=== PATIENT | male | born 1985 | race Caucasian/White ===

== ENCOUNTER 2017-07-18 03:27 | Emergency (ER) | payer OTHER ==
[2017-07-18 03:31] VITALS: BP 146/84; PULSE 92; RESP 18; TEMP 98.3
--- NOTE | 2017-07-18 03:46 | ED ---
General Adult HPI - General Chief complaint: Skin/Abscess/Foreign Body Stated complaint: Arm Abscess Source: patient, RN notes reviewed Mode of arrival: ambulatory Limitations: no limitations - History of Present Illness Initial comments: 32-year-old male with no significant past medical history presents for evaluation of rash on his right shoulder. Rash is been present for approximately one week. His itching. Patient does not report any specific exposure. He works at a [employer], and states there may be poison mikayla but is unsure if he was ever exposed. Denies fever or chills. Denies any spreading of the rash. Rash is itchy in nature. No fever or chills. Denies any medications. - Related Data Previous Rx's Medication Instructions Recorded Mupirocin 2% Oint [Bactroban 2% 1 applic TOPICAL TID #30 gm 07/18/17 Oint] Allergies Allergy/AdvReac Type Severity Reaction Status Date / Time No Known Allergies Allergy Verified 07/18/17 03:31 Review of Systems ROS Statement: Those systems with pertinent positive or pertinent negative responses have been documented in the HPI. ROS Other: All systems not noted in ROS Statement are negative. Past Medical History Past Medical History: No Reported History History of Any Multi-Drug Resistant Organisms: None Reported Past Surgical History: No Surgical Hx Reported Past Psychological History: No Psychological Hx Reported Smoking Status: Current every day smoker Past Alcohol Use History: Daily Past Drug Use History: None Reported General Exam Limitations: no limitations General appearance: alert, in no apparent distress Head exam: Present: atraumatic, normocephalic Eye exam: Present: normal appearance, PERRL ENT exam: Present: normal exam Neck exam: Absent: tenderness, meningismus Respiratory exam: Present: normal lung sounds bilaterally. Absent: respiratory distress Cardiovascular Exam: Present: regular rate, normal rhythm GI/Abdominal exam: Present: soft. Absent: distended, tenderness Extremities exam: Present: other (Erythematous rash with some yellow crusting. No signs of abscess,) Back exam: Present: normal inspection Neurological exam: Present: alert, oriented X3 Psychiatric exam: Present: normal affect, normal mood Skin exam: Present: warm, dry, rash (Rash to right anterior shoulder, erythematous with crusting) Course Vital Signs 07/18/17 03:30 Temperature 98.3 F Pulse Rate 92 Respiratory 18 Rate Blood Pressure 146/84 O2 Sat by Pulse 99 Oximetry Medical Decision Making - Medical Decision Making 32-year-old male, well-appearing, no medical history presents with a one-week a rash. Rash consistent with impetigo on the right shoulder. Patient is given a [place] ointment. He will follow-up with his primary care physician. Return the emergency Department with worsening symptoms. Disposition Clinical Impression: Impetigo Disposition: HOME SELF-CARE Condition: Good Instructions: Impetigo (ED) Prescriptions: Mupirocin 2% Oint [Bactroban 2% Oint] 1 applic TOPICAL TID #30 gm Referrals: None,Stated [Primary Care Provider] - 1-2 days Time of Disposition: 03:45
== END 2017-07-18 03:53 | disposition home or self-care (01) ==
LOC: EC 03:27
DX: L01.00 Impetigo, unspecified (principal); F17.200 Nicotine dependence, unspecified, uncomplicated
CPT/HCPCS: 99282